=== PATIENT | male | born 1940 | race Caucasian/White ===

== ENCOUNTER 2016-06-06 13:33 | Emergency (ER) | payer MEDICARE, OTHER ==
[~2016-06-06] VITALS: Ht 185.4 cm; Wt 68.2 kg
[~2016-06-06 13:33] MED LIST: ALBU3SOL2 IH; ASPI-378 PO; FURO-3 PO; FURO40TA4 PO; IPRA3AMP IH; METO25T PO; MULT-1007 PO; POTA-62 PO; POTA20TA35 PO; SYMINH PO; ZOC20 PO
[2016-06-06 13:49] VITALS: BP 124/52; PULSE 65; RESP 12; O2SAT 97
--- NOTE | 2016-06-06 14:12 | ED.REPORT ---
HPI-Trauma Minor / Fall Date of Service Jun 06, 2016 ED Provider: Lara Lopez MD Patient is a 75 year old with HTN and COPD who presents to the ED via EMS with left arm and left hip pain after falling 3' off a ladder two days ago. Pt was able to move immediately after falling but is now unable to walk or bear any weight on his left leg. Medics had to physically lift him into the gurney. He has remained sitting or used his walker for the past 2 days. Pain is exacerbated by movement. He denies any LOC or dizziness prior to falling off the ladder and states he did not hit his head. Pt had a stroke in 2004. Nursing Notes Stated Complaint: LEFT HIP AND WRIST PAIN Chief Complaint: Multiple Trauma/Fall Nursing Notes Reviewed: Yes Allergies: Coded Allergies: No Known Allergies (Verified , 06/03/12) Scheduled Albuterol/Ipratropium (DuoNEB Nebule) 3 Ml Nebu 3 ML IH QIDRT 1 NEB IH QID Aspirin-Expunged Drug, Do Not Renew! (Aspirin-Expunged Drug, Do Not Renew!) 81 Mg Tablet.dr 81 MG PO DAILY Dxuxm-Nkicgf-Bpmlkvxz Drug, Do Not Renew! (Symbicort 160/4.5mcg-Expunged Drug, Do Not R) 1 Puff Inha 2 PUFF PO BID PRIME WITH 1 PUMP PRIOR TO INITIAL USE. *SHAKE WELL*RINSE MOUTH AFTER EACH USE* Furosemide (Furosemide) 40 Mg Tablet 40 MG PO DAILY Furosemide-Expunged Drug, Do Not Renew! (Furosemide-Expunged Drug, Do Not Renew! ) 40 Mg Tablet 40 MG PO DAILY 40 MG DAILY Ipratropium/Albuterol Sulfate (Iprat-Albut 0.5-3(2.5) mg/3 mL Inhalant Soln) 3 Ml Ampul.neb 3 ML IH Q6 Metoprolol Tart-Expunged Drug, Do Not Renew! (Metoprolol Tart-Expunged Drug, Do Not Renew!) 25 Mg Tablet 25 MG PO BID Multivitamin (Multi-Vitamin Daily) 1 Each Tablet 1 EACH PO DAILY POTASSIUM CHL-Expunged Drug, Do Not Renew! (G-CXK-Yqyemyss Drug, Do Not Renew!) 20 Meq Tab.er.prt 20 MEQ PO DAILY Potassium Chloride ER (Potassium Chloride ER) 20 Meq Tablet.er 20 MEQ PO DAILY TAKE WITH FOOD Simvastatin-Expunged Drug, Choose New Med! (Simvastatin-Expunged Drug, Choose New Med!) 20 Mg Tablet 20 MG PO HS General Time Seen by MD: 14:12 Chief Complaint Fall Hx Obtained From: Patient Arrived By: Ambulance Onset Occurred: 2 days ago Symptom Duration: Since onset Caused by: Fall from height... (3 ft ) Location: Arm left Hip left Severity: Current: Moderate Recent Healthcare: No recent doctor visit, No recent hospitalization Similar Sx Previous: No Past Medical History Past Medical History Notes: echo 2013 admit normal LV function. was thought to have fluid overload that admit. Medications list from outpatient notes of March 2016: Albuterol Amlodipine 10 mg daily Citalopram 40 mg daily Furosemide 40 mg daily Hydralazine 50 mg twice a day Iron supplement Lorazepam 1 mg 3 times a day when necessary Losartan 100 mg daily Metoprolol tartrate 50 mg one half tab twice a day Pantoprazole 40 mg 1 tab daily Simvastatin 20 mg daily Lela 10.5 mg daily Symbicort inhaler 2 puffs daily and in the evening Temazepam 15-30 mg at bedtime when necessary Past Medical History Anxiety History of remote CVA with mild residual ataxia Hypercholesterolemia Chronic dizziness, patient attributes to the remote stroke History renal insufficiency Chronic ass near the left biceps, reportedly biopsy negative Reports: COPD (chronic prednisone), Hyperlipidemia, Hypertension Reports: Depression Past Surgical History denies Smoking History Current Every Day Smoker Social History Alcohol Use: "Social" Drug Use: Denies drug use Review of Systems Musculoskeletal: Reports: Extremity pain (left arm), Joint pain (left hip) Neurologic: Denies: Dizziness, Lightheaded Complete sys rev & neg: except as marked. Physical Exam Initial Vital Signs Vital Signs (First) Date Time Temp Pulse Resp B/P Pulse Ox O2 Delivery O2 Flow Rate FiO2 06/06/16 13:49 36.6 65 12 124/52 97 Room Air Initial VS: Reviewed Head / Eyes: Atraumatic, Normocephalic, PERRL ENT: Mucous membranes moist, Conjunctiva normal, No scleral icterus Respiratory: Breath sounds normal, Clear to auscultation, No respiratory distress Cardiovascular: Regular rate & rhythm, Heart sounds normal, Intact distal pulses Abdomen / GI: Soft, Non-tender, No guarding, No rebound, No distention Skin: Warm, Dry, No cyanosis Neurologic: Alert, Oriented, Nonfocal Psychiatric: Mood/affect normal, Behavior normal, Normal thought content General/Constitutional: Awake, Alert, Cooperative Neck: Atraumatic, Full range of motion no neck pain Left Forearm: Positive: Swelling present... Bruise on right elbow Good range of motion in both elbows Left hand and arm are swollen with significant hematoma from the forearm down lateral bulge on distal forearm that is a torn tricep Left Wrist: Positive: Swelling present... Left wrist pain with movement Interpretation & Diagnostics Lab Results Interpretation Result Diagram: 06/06/16 1635 06/06/16 1635 Test 06/06/16 16:32 06/06/16 16:35 Hold [place] Top Tube Received (Received) White Blood Count 10.2th/mm3 (3.8-10.1) Red Blood Count 2.65mil/mm3 (4.40-5.80) Hemoglobin 8.3g/dL (13.8-17.2) Hematocrit 25.3% (41.0-50.0) Mean Corpuscular Volume 95.5fL (81-100) Mean Corpuscular Hemoglobin 31.3pg (27.0-35.0) Mean Corpuscular Hemoglobin Concent 32.8% (32.0-37.0) Red Cell Distribution Width 14.9% (12.3-15.4) Platelet Count 245bil/L (150-400) Neutrophils (%) (Auto) 85.4% (40-74) Lymphocytes (%) (Auto) 7.9% (14-46) Monocytes (%) (Auto) 6.0% (4-12) Eosinophils (%) (Auto) 0.4% (0-5) Basophils (%) (Auto) 0.2% (0-3) Prothrombin Time 9.7sec (8.1-12.5) Prothromb Time International Ratio 0.91ratio Activated Partial Thromboplast Time 28.2sec (22.8-33.0) Sodium Level 137mEq/L (134-144) Potassium Level 3.9mEq/L (3.5-5.2) Chloride Level 98mEq/L (97-108) Carbon Dioxide Level 23mmol/L (18-29) Blood Urea Nitrogen 44mg/dL (8-27) Creatinine 1.91mg/dL (0.76-1.27) Estimat Glomerular Filtration Rate 37mL/min (>59) Glucose Level 91mg/dL (60-99) Calcium Level 8.5mg/dL (8.5-10.1) Total Bilirubin 0.9mg/dL (0.0-1.2) Aspartate Amino Transf (AST/SGOT) 39U/L (0-50) Alanine Aminotransferase (ALT/SGPT) 13U/L (0-44) Alkaline Phosphatase 47U/L (25-160) Total Protein 6.1g/dL (6.4-8.4) Albumin 3.8g/dL (3.4-5.0) Lab Results Interpretation: CBC anemia, uncertain etiology-down from hematocrit of 33 and 2014 as last comparison CMP renal insufficiency, this is an increase from a creatinine 1.25 in December 2014, but is previous graduates are all up to around 1.9/2 X-Ray Interpretation Xray Interpretation: IMPRESSION: Questionable left pubic root fracture versus overlying soft tissue artifact. If the patient endorses pain in the symphysis pubis, CT of the pelvis is recommended to further characterize findings. Dictated by: Maritza Garcia M.D. on 06/06/2016 at 15:23 Approved by: Maritza Garcia M.D. on 06/06/2016 at 15:26 Study Performed: PROCEDURE: X-RAY PELVIS W/LAT HIP (LT) ([id number]) Xray Interpretation: IMPRESSION: 1. Displaced ulnar styloid fracture. 2. Impacted, displaced, likely intra-articular distal radial fracture. 3. Expansile lucent lesion within the distal radial diaphysis. No prior comparisons are available to determine the acuity of this finding. No endosteal scalloping or associated soft tissue mass. 6-12 week followup is recommended to ensure stability of this finding. Dictated by: Maritza Garcia M.D. on 06/06/2016 at 15:20 Approved by: Maritza Garcia M.D. on 06/06/2016 at 15:23 Study Performed: PROCEDURE: X-RAY LEFT WRIST COMPLETE, MINIMUM THREE VIEWS ([id number]) CT Head Interpretation IMPRESSION: 1. No acute intracranial findings. 2. Probable minimally displaced left nasal bone fracture. 3. Extensive findings likely associated with chronic microvascular ischemic changes and old left cerebellar infarct. Dictated by: Maritza Garcia M.D. on 06/06/2016 at 19:01 Approved by: Maritza Garcia M.D. on 06/06/2016 at 19:04 CT Abd / Pelvis Interpretation IMPRESSION: 1. Minimally displaced left acetabular fracture. No other fracture or dislocation. Dictated by: Maritza Garcia M.D. on 06/06/2016 at 16:30 Approved by: Maritza Garcia M.D. on 06/06/2016 at 16:34 IMPRESSION: 1. No acute intra-abdominal trauma. 2. Left acetabular fracture as described on the associated pelvic CT from the same date. 3. Multicystic right pelvic kidney. 4. Normal appendix. 5. Stable T11 wedge compression deformity. 6. Small left pleural effusion. Dictated by: Maritza Garcia M.D. on 06/06/2016 at 19:04 Approved by: Maritza Garcia M.D. on 06/06/2016 at 19:13 CT C-Spine Interpretation IMPRESSION: 1. No acute cervical spine injury. 2. Aortic atherosclerosis. 3. Centrilobular emphysema. Dictated by: Maritza Garcia M.D. on 06/06/2016 at 18:58 Approved by: Maritza Garcia M.D. on 06/06/2016 at 19:01 Re-Eval/Medical Decision Med Decision/Clinical Course This is a 75-year-old male with a history of COPD reports is not on any anticoagulants presents by EMS complaining of a fall that occurred on . He was on the second rung of a 5-6 foot ladder working in the [employer] when he reached out to grab a tarp, and fell. He denied any antecedent symptoms. His actually been a bleeding with a walker at home yesterday, but became so sore today he was unable to even get up and therefore he called 911. The patient on exam is awake, alert answering questions, and a bit frustrated and mildly ornery. He has no visible signs of trauma his head, spine is nontender, his chest wall is nontender, his abdomen is soft and nontender. Bruising of the left elbow down to the wrist with a swollen wrist with decreased range of motion. He got a couple 2 mm skin tears. He has a mass around the lateral aspect of the left bicep-he gets very upset-when he asked about it because he says is chronic, he blames it on a "muscle tear and "says this been biopsied, it has been stable for many years. I was initially concerned might be a hematoma related to the injuries that seemed fairly sizable , patient is adamant is been unchanged for numerous years. Patient does have some mild left hip and pubic area pain. No shortening, no deformity. Legs neurovascularly intact. A concerning for the possibility of a fracture and the pubic rim air pelvis but is difficult to tell, CT imaging was recommended. CT imaging was obtained and was positive for left acetabular fracture. The CT was reviewed with orthopedist Dr. Conrad who recommended transfer to [facility] for management. Patient is ambulatory at baseline. At the same time, labs came back and demonstrated a marked anemia. The patient is quite stoic, he is waving around his fractured left wrist, spent a bleeding on these injuries with a walker for 2 days, saline I could not find additional medical overt signs of trauma or bruising or injury, given the anemia I will have more extensive workup was pursued. CT the head was negative C-spine was negative, chest x-ray is negative, and an abdomen pelvis was negative for trauma. The patient remained hemodynamically normal throughout his multi hour ED stay. I am not finding evidence of hemorrhage or instability. Patient did type and cross, but does not require transfusion. Assessment discussed at [facility] in the patient's been accepted in transfer. The patient being transferred for continued management. Left Wrist was placed in a splint. Source of Hx: Old records Re-Evaluation/Progress #1: Time of Eval: 15:50 Re-Evaluation/Progress Note: Pt care transferred to Dr. Lee Pt rechecked. Pt reports that he takes daily baby ASA. Discussed need for additional imaging. Pt denies pain medication currently. He states that he is currently hungry. Discussed need to be NPO till imaging is resulted and need for surgery assesed. Re-Evaluation/Progress #2: Time of Eval: 17:50 Re-Evaluation/Progress Note: Pt rechecked. Discussed need for tx to [facility]. Pt understands and agrees with plan. Consultation #1: Referral / Consult Name: Katherine Soto MD Consulted With: Hospitalist Call Returned at: 16:28 Care Associate: Accepts admit Note: Discussed pt condition. Accepts admit. Consultation #2: Referral / Consult Name: Arnol Conrad MD Consulted With: Orthopedic Call Returned at: 17:08 Note: Consulted with Dr. Conrad about pubic rami vs. acetabular fx. He will review imaging and return call. Consultation #3: Referral / Consult Name: Arnol Conrad MD Consulted With: Orthopedic Call Returned at: 17:25 Note: returned call. He recommedns trasfer of pt to [facility] for acetabular fx. Consultation #4: Call Returned at: 20:20 Note: Discussed pt condition with Dr. Nguyen and need for transfer due to acetabular fracture. Accepts transfer. Counseled Regarding: Diagnosis, Lab results Discharge & Departure Shift Change Sign-Out Patient Care Transferred: Yes Discussed Complaint(s): Yes Imaging Studies: Ordered, not yet done Impression: Primary Impression: Acetabular fracture Encounter type: initial encounter Sublocation of acetabulum: unspecified portion of acetabulum Fracture type: closed Fracture alignment: displaced Laterality: left Qualified Code: S32.402A - Unspecified fracture of left acetabulum, initial encounter for closed fracture Additional Impressions: Wrist fracture, left Encounter type: initial encounter Fracture type: closed Qualified Code: S62.102A - Fracture of unspecified carpal bone, left wrist, initial encounter for closed fracture Anemia Renal insufficiency Disposition: Transfer, Acute Care Facility ([facility]) Receiving Hospital: [facility], Dr. Nguyen Transfer Accepted: Yes Transfer Accepted at: 20:20 Transfer Reason: Higher level of care Patient Status: Stable, Stable for transfer Patient Informed: Yes Discharge Condition All VS Reviewed: Yes Condition: Stable Referrals: Yonatan Whitley MD (PCP) Care Transferred to: Dr. Lee Care Transferred at: 15:01 Rona Attestation Portion of this note were transcribed by Wendy Sherwood. I, Dr. Lopez, personally performed the history, physical exam, and medical decision-making: I reviewed and confirmed the accuracy for the information in the transcribed note. Signed by: rona Houston, 06/06/16 1501 Portions of this note were transcribed by Yoni Burkett. Dr. Jesus Villanueva personally performed the history, physical exam and medical decision-making; I reviewed and confirmed the accuracy of the information in the transcribed note. Signed by: Rona Lemons, 06/06/2016 and 2024. copies to: Yonatan Whitley MD, Shawna L MD Jun 06, 2016 14:12 WENDY SHERWOOD Jun 06, 2016 14:32 Jed Lee MD Jun 06, 2016 16:09 YONI BURKETT Jun 06, 2016 17:46
--- NOTE | 2016-06-06 15:24 | DRSVH ---
PROCEDURE: X-RAY LEFT WRIST COMPLETE, MINIMUM THREE VIEWS ([id number]) INDICATIONS: fall TECHNIQUE: 4 views of the wrist were acquired. COMPARISON: None. FINDINGS: Bones: There is a minimally displaced ulnar styloid fracture. There is an impacted comminuted distal radial fracture which likely extends to the articular surface. Bones are osteopenic. Severe degenerat aisha changes are present throughout the carpal carpal joints. An expansile lucent lesion is present within the distal radial diaphysis. Scaphoid view: The scaphoid is intact. Soft tissues: No suspicious soft tissue calcifications. There is elevation of the pronator fat-pad consistent with joint effusion. IMPRESSION: 1. Displaced ulnar styloid fracture. 2. Impacted, displaced, likely intra-articular distal radial fracture. 3. Expansile lucent lesion within the distal radial diaphysis. No prior comparisons are available to determine the acuity of this finding. No endosteal scalloping or associated soft tissue mass. 6-12 we ek followup is recommended to ensure stability of this finding. Dictated by: Maritza Garcia M.D. on 06/06/2016 at 15:20 Approved by: Maritza Garcia M.D. on 06/06/2016 at 15:23
--- NOTE | 2016-06-06 15:27 | DRSVH ---
PROCEDURE: X-RAY PELVIS W/LAT HIP (LT) ([id number]) INDICATIONS: fall TECHNIQUE: AP pelvis with lateral view(s) of the left hip(s). COMPARISON: [facility], CT, ABD/PELVIS W/CON (PN), 09/29/2013, 13:49. FINDINGS: Bones: The cortex of the left pubic root has an irregular appearance which may be associated with the fracture or may represent artifact from overlying gas filled bowel. No other visualized fracture or dislocation. Soft tissues: The visualized bowel gas pattern is normal. No suspicious soft tissue calcifications. IMPRESSION: Questionable left pubic root fracture versus overlying soft tissue artifact. If the patie nt endorses pain in the symphysis pubis, CT of the pelvis is recommended to further characterize find ings. Dictated by: Maritza Garcia M.D. on 06/06/2016 at 15:23 Approved by: Maritza Garcia M.D. on 06/06/2016 at 15:26
[2016-06-06] MEDS ORDERED: Ondansetron 2 mg/mL 2 mL Inj IVPUSH ONE (15:50)
[2016-06-06] MEDS ORDERED: fentaNYL-PF 50 mCg/mL 2 mL Inj IVPUSH PRN (15:50)
--- NOTE | 2016-06-06 16:36 | DRSVH ---
PROCEDURE: CT PELVIS WITHOUT CONTRAST ([id number]) INDICATIONS: trauma, pain ?fx TECHNIQUE: After the administration of oral contrast, 5 mm thick sections acquired from the iliac crests to the symphysis. 5 mm coronal and sagittal reformats were then performed. For radiation dose reduction, t he following was used: automated exposure control, adjustment of mA and/or kV according to patient s ize. COMPARISON: None. FINDINGS: Image quality: Excellent. Peritoneum and bowel: Bowel loops demonstrate normal wall thickness and caliber. No free fluid or a ir. Genitourinary: Bladder wall thickness is normal. Nodes and vessels: No iliac, pelvic, or inguinal adenopathy by size criteria. Iliac vessels demonst rate normal size. Scattered atheromatous calcifications are present within the abdominal aorta and i liac vessels. Bones: There is a minimally displaced left acetabular fracture. No other fracture or dislocation. The left femoral head remains articulated with the acetabulum. Miscellaneous: No inguinal hernias. IMPRESSION: 1. Minimally displaced left acetabular fracture. No other fracture or dislocation. Dictated by: Maritza Garcia M.D. on 06/06/2016 at 16:30 Approved by: Maritza Garcia M.D. on 06/06/2016 at 16:34
[2016-06-06 16:48] LABS: BASOPHILS % (AUTO) 0.2 % (0-3); EOSINOPHILS % (AUTO) 0.4 % (0-5); Mean Corpuscular Hemoglobin 31.3 pg (27.0-35.0); Mean Corpuscular Volume 95.5 fL (81-100); NEUTROPHILS % (AUTO) 85.4 % (40-74); Platelet Count 245 bil/L (150-400)
[2016-06-06] MEDS ORDERED: Ondansetron 2 mg/mL 2 mL Inj IVPUSH PRN (16:50)
[2016-06-06] MEDS ORDERED: Alum-Mag Hydrox-Simeth 30 mL Suspension PO PRN (16:50)
[2016-06-06] MEDS ORDERED: HYDROcodone-APAP 5-325 mg Tablet PO PRN (16:50)
[2016-06-06] MEDS ORDERED: Polyethylene Glycol (PEG) 17 Gm Powder PO PRN (16:50)
[2016-06-06 17:18] LABS: INR 0.91 ratio
--- NOTE | 2016-06-06 17:49 | DRSVH ---
PROCEDURE: X-RAY CHEST ONE VIEW, PORTABLE ([id number]) INDICATIONS: fall TECHNIQUE: One view of the chest was acquired. COMPARISON: None. FINDINGS: Surgical changes and devices: None. Lungs and pleura: No pleural effusions or pneumothorax. Lungs are clear. Severe emphysematous tao ges are present with scarring at the lung bases. Mediastinum: The thoracic abdominal aorta is tortuous and ectatic. Heart is normal size. Bones and chest wall: No suspicious bony lesions. Overlying soft tissues appear unremarkable. IMPRESSION: 1. No acute cardiopulmonary findings. 2. Severe emphysematous change. 3. Tortuous ectatic thoracic aorta. Dictated by: Maritza Garcia M.D. on 06/06/2016 at 17:47 Approved by: Maritza Garcia M.D. on 06/06/2016 at 17:48
[2016-06-06 18:44] VITALS: BP 143/47; PULSE 80; RESP 20; O2SAT 95
--- NOTE | 2016-06-06 19:03 | DRSVH ---
PROCEDURE: CT CERVICAL SPINE WITHOUT CONTRAST ([id number]) INDICATIONS: fall TECHNIQUE: Noncontrast 3 mm thick sections acquired from the skull base to the T4 level. Sagittal and coronal r eformats were then constructed. For radiation dose reduction, the following was used: automated exp osure control, adjustment of mA and/or kV according to patient size. COMPARISON: None. FINDINGS: Image quality: Excellent. Bones: No fractures or dislocations. There is grade I C4 on C5 anterolisthesis. Alignment is otherwi se normal. Visualized superior ribs are intact. Soft tissues: Prevertebral soft tissues are normal in thickness. No paravertebral hematomas. No ap ical pneumothoraces. There is moderate centrilobular emphysema. Atheromatous calcifications are pres ent at the aortic arch. IMPRESSION: 1. No acute cervical spine injury. 2. Aortic atherosclerosis. 3. Centrilobular emphysema. Dictated by: Maritza Garcia M.D. on 06/06/2016 at 18:58 Approved by: Maritza Garcia M.D. on 06/06/2016 at 19:01
--- NOTE | 2016-06-06 19:06 | DRSVH ---
PROCEDURE: CT BRAIN WITHOUT CONTRAST ([id number]) INDICATIONS: fall TECHNIQUE: Noncontrast 4.5 mm thick angled axial sections acquired from the foramen magnum to the vertex, with c oronal reformats. COMPARISON: None. FINDINGS: Image quality: Excellent. CSF spaces: Basal cisterns are patent. No extra-axial fluid collections. The ventricles are symmet todd in size and shape. Brain: No intracranial bleeds or masses. There is a cerebral volume loss for age, with resultant ve ntricular and sulcal prominence. There are extensive periventricular and deep white matter chronic s mall vessel ischemic changes. Marked encephalomalacia is present throughout the left cerebellar tashi sphere. There is intracranial internal carotid artery atherosclerosis. Skull and face: There is likely a minimally displaced left nasal bone fracture, the acuity of which is unknown. Calvarium and visualized facial bones appear otherwise intact, without suspicious lesions . Sinuses: Visualized sinuses and mastoids are clear. IMPRESSION: 1. No acute intracranial findings. 2. Probable minimally displaced left nasal bone fracture. 3. Extensive findings likely associated with chronic microvascular ischemic changes and old left cere bellar infarct. Dictated by: Maritza Garcia M.D. on 06/06/2016 at 19:01 Approved by: Maritza Garcia M.D. on 06/06/2016 at 19:04
--- NOTE | 2016-06-06 19:14 | DRSVH ---
PROCEDURE: CT ABDOMEN AND PELVIS WITH CONTRAST TRAUMA ([id number]) INDICATIONS: fall TECHNIQUE: After the administration of intravenous contrast, 5 mm thick sections acquired from the diaphragms to the symphysis. 5 mm thick coronal and sagittal reformats were acquired. Optional 10-minute delayed imaging may be performed from the kidneys to the bladder. For radiation dose reduction, the followi ng was used: automated exposure control, adjustment of mA and/or kV according to patient size. COMPARISON: [facility], CT, CT PELVIS WO CON, 06/06/2016, 16:13. [facility] , CT, CHEST WITH CONTRAST, 03/15/2015, 14:58. [facility], CT, ABD/PELVIS W/CON (PNL), 09/2013, 13:49. FINDINGS: Image quality: Excellent. ABDOMEN: Lung bases: There is extensive scarring at the bilateral lung bases. There is likely a small left ple ural effusion. Solid organs: Liver and spleen are normal in size and enhancement, without lacerations. Gallbladder is unremarkable. Biliary system is non-dilated. Pancreas enhances normally, without transection. No adrenal hematomas. The left kidney demonstrates normal size and enhancement. Low-density cystic le sions are present within the left kidney which likely represent simple renal cysts but are incomplete ly characterized. The right kidney is present within the pelvis with multiple cortical and perirenal cysts within. Peritoneum and bowel: No free fluid or air. Unenhanced bowel loops demonstrate normal wall thicknes s and caliber. The appendix is thin walled and gas filled. Nodes and vessels: No retroperitoneal or mesenteric adenopathy. Aorta and inferior vena cava are no rmal in size and enhancement. Dense atheromatous calcifications are present throughout the abdominal aorta. Miscellaneous: No ventral hernias. PELVIS: Genitourinary: Bladder wall thickness is normal. Miscellaneous: No inguinal hernias or adenopathy. Bones: Minimally displaced acetabular fracture is noted. This is better characterized on the associat ed CT of the pelvis from the same date. No new vertebral compression fractures. Wedge compression deformity at T11 is similar in extent to the study dated 03/15/15. IMPRESSION: 1. No acute intra-abdominal trauma. 2. Left acetabular fracture as described on the associated pelvic CT from the same date. 3. Multicystic right pelvic kidney. 4. Normal appendix. 5. Stable T11 wedge compression deformity. 6. Small left pleural effusion. Dictated by: Maritza Garcia M.D. on 06/06/2016 at 19:04 Approved by: Maritza Garcia M.D. on 06/06/2016 at 19:13
[2016-06-06] MEDS ORDERED: IPRATROPIUM IH SCH (20:00)
[2016-06-06] MEDS ORDERED: ALBUTEROL IH SCH (20:00)
[2016-06-06] MEDS ORDERED: Albuterol-Ipratropium 3 mL Inhalation Solution INHALATION SCH (20:30)
[2016-06-06] MEDS ORDERED: [UNRECOGNIZED DRUG - OTHER] PO SCH (21:00)
[2016-06-06] MEDS ORDERED: SIMVASTATIN PO SCH (21:00)
== END 2016-06-06 21:08 | disposition short-term general hospital (02) ==
LOC: EDBD 13:33 → SED 13:33
DX: S32.402A Unspecified fracture of left acetabulum, initial encounter for closed fracture (principal); S62.102A Fracture of unspecified carpal bone, left wrist, initial encounter for closed fracture; D64.9 Anemia, unspecified; N28.9 Disorder of kidney and ureter, unspecified; W11.XXXA Fall on and from ladder, initial encounter; Y93.89 Activity, other specified; Y92.9 Unspecified place or not applicable; Y99.8 Other external cause status; I10 Essential (primary) hypertension; F17.200 Nicotine dependence, unspecified, uncomplicated; Z79.82 Long term (current) use of aspirin
CPT/HCPCS: 29125; 36415; 70450; 71010; 72125; 72192; 73110; 73501; 74177; 80053; 85025; 85610; 85730; 86850; 99285; Q9967